=== PATIENT | female | born 1955 | race Caucasian/White ===

== ENCOUNTER → 2017-03-14 | Outpatient (CLI) | payer BC ==
--- NOTE | 2017-03-15 07:25 | MAMMOGRAPHY REPORT ---
BILATERAL DIGITAL SCREENING MAMMOGRAM TOMOSYNTHESIS WITH CAD: 03/14/2017 CLINICAL HISTORY: Routine screening. Patient has no complaints. TECHNIQUE: Breast tomosynthesis in addition to standard 2D mammography was performed. Current study was also evaluated with a Computer Aided Detection (CAD) system. COMPARISON: Comparison is made to exams dated: 03/10/2016 mammogram, 01/31/2015 mammogram, 01/23/2014 mammogram, 08/08/2013 mammogram, 02/02/2013 ultrasound, and 01/17/2013 mammogram - [facility]. BREAST COMPOSITION: There are scattered areas of fibroglandular density in both breasts. FINDINGS: There are benign rodlike calcifications in both breasts. No suspicious mass, architectura l distortion or cluster of microcalcifications is seen. IMPRESSION: ACR BI-RADS CATEGORY 2: BENIGN There is no mammographic evidence of malignancy. A 1 year screening mammogram is recommended. The pa tient will receive written notification of the results. Approximately 10% of breast cancers are not detected with mammography. A negative mammographic report should not delay biopsy if a clinically suggestive mass is present. Apolonia Garcia M.D. ay/:03/14/2017 16:15:03 [employer] Lead: Daily MURILLO(Katiy)(Grabiel), [facility] letter sent: Normal 1/2 BI-RADS Code: ACR BI-RADS Category 2: Benign
== END | disposition home or self-care (01) ==
LOC: C.MAMM 14:47
PROVIDERS: ATTEND Obstetrics & Gynecology
DX: Z12.31 Encounter for screening mammogram for malignant neoplasm of breast (principal)

== ENCOUNTER 2019-01-05 07:50 | Inpatient (IN) ==
--- NOTE | 2018-12-06 08:31 | PAT Medication Instructions ---
Medication Instructions Date of Service December 06, 2018 Home Medications [employer]™ 1 cap PO DAILY allopurinol 300 mg PO QAM ezetimibe [Zetia] 10 mg PO QPM [Glucosamine Chondroitin] 1 cap PO BID insulin glargine [Lantus Solostar U-100 Insulin] 50 unit SUBCUT BID lisinopril-hydrochlorothiazide 1 tab PO QAM metformin 1,000 mg PO BID multivitamin 1 cap PO DAILY [Fish Oil] 1 cap PO BID STOP taking 2 weeks before surgery [Glucosamine Chondroitin] 1 cap PO BID [Fish Oil] 1 cap PO BID DO NOT take the morning of surgery [employer]™ 1 cap PO DAILY lisinopril-hydrochlorothiazide 1 tab PO QAM metformin 1,000 mg PO BID multivitamin 1 cap PO DAILY Take morning of surgery With a small sip of water, OTHERWISE NOTHING TO EAT OR DRINK AFTER MIDNIGHT: allopurinol 300 mg PO QAM Take evening before surgery ezetimibe [Zetia] 10 mg PO QPM insulin glargine [Lantus Solostar U-100 Insulin] 50 unit SUBCUT BID metformin 1,000 mg PO BID Insulin Dependent Diabetic Patients * Test your blood sugar the morning of surgery * If Blood Sugar is GREATER THAN 150, take HALF of your regular dose of: insulin glargine [Lantus Solostar U-100 Insulin] -- TAKE 25 UNITS * If Blood Sugar is LESS THAN 150, DO NOT TAKE ANY: insulin glargine [Lantus Solostar U-100 Insulin] Other Notes If you have any questions please call us at [phone] or [phone] or [phone] or [phone]
--- NOTE | 2018-12-06 11:10 | Anesthesiology Consultation ---
Date of Service December 06, 2018 Assessment & Plan (1) Encounter for pre-operative examination: *PATIENT GOES BY "BRYN" Pt has a schwannoma at L3-L4. Pt previously followed with neurology [facility] P philip. Most recent MRI 2007 (in chart). No intervention done or planned. SAB and GA discussed with patient at [facility]. Chart Review Chart Review: Acceptable Risk for Surgery and Patient seen in Pre Admission Testing Teaching & Discussion Instructed NPO after midnight before surgery, except medications with 15 cc of water. Medication instructions provided according to the [facility] guidelines. History Surgery Operation Date: 01/05/19 13:05 Proposed Procedures p Right Total Knee Arthroplasty - Michael Wynn, Height/Weight Height: 5 ft 1 in Weight: 94.4 kg Allergies Allergy/AdvReac Type Severity Reaction Status Date / Time lactose Allergy Unknown LACTOSE Verified 11/28/18 11:28 INTOLERANT No Known Drug Allergies Allergy Unknown NKDA Verified 11/28/18 11:28 Medications Home Medications Medication Instructions Recorded Confirmed Last Taken DadShed 1 cap PO DAILY 11/28/18 11/28/18 Unknown allopurinol 300 mg PO QAM 11/28/18 11/28/18 11/28/18 ezetimibe [Zetia] 10 mg PO QPM 11/28/18 11/28/18 11/27/[address] 6CMh-muw-ysyhl-C-Mn 1 cap PO BID 11/28/18 11/28/18 Unknown [Glucosamine Chondroitin] insulin glargine [Lantus Solostar 50 unit SUBCUT BID 11/28/18 11/28/18 11/28/18 U-100 Insulin] lisinopril-hydrochlorothiazide 1 tab PO QAM 11/28/18 11/28/18 11/28/18 metformin 1,000 mg PO BID 11/28/18 11/28/18 11/28/18 multivitamin 1 cap PO DAILY 11/28/18 11/28/18 Unknown omega 2-gyx-ucr-fish oil [Fish Oil] 1 cap PO BID 11/28/18 11/28/18 Unknown Past Medical History Medical History Diabetes IDDM Gout History of diverticulitis TX WITH ABX History of kidney stones Hyperlipidemia Hypertension Obesity Osteoarthritis Schwannoma of spinal cord L3-L4. Pt previously followed with neurology [facility]. No intervention done or planned. Exercise / Class Metabolic Activity II 4-5 Yardwork/Stairs/Walk up hill (recently limited by knee pain but denies CP or SOB, has been swimming lately) Past Surgical History Surgical History History of biopsy BACK (TUMOR BIOPSY) History of colonoscopy History of dental surgery some teeth removed History of dilation and curettage History of tubal ligation Past Anesthesia History No Hx of Anesthesia Complications and No Family Hx of Anesthesia Complications History of PONV No Hx of PONV and Hx of Motion Sickness Social History Smoking Status: Never smoker Do You Dip or Chew Tobacco: No Hx Alcohol Use: No Hx Substance Use: No substance use type: does not use Review of Systems Pt denies any recent chest pain, shortness of breath, palpitations, cough, fever or URI. Physical Exam Vital Signs BP: 119/79 P: 88bpm SPO2: 95% RA T: 98.5 F R: 16 Constitutional + obese ENMT Mouth: + dental restorations (one crown); no chipped teeth and no loose teeth Thyromental Distance: > or= 3.5 Finger Breadths (4) Mallampati Class: III several missing teeth Neck + short neck and + thick neck; neck extension not limited Respiratory normal respiratory effort Auscultation: lungs clear to auscultation bilaterally Cardiovascular Rate/Rhythm: regular rate and regular rhythm Heart Sounds: no murmur Vessels: no carotid bruit Extremities: no edema Testing Laboratory Results 12/06/18 11:21 12/06/18 11:21 PT 10.6 Seconds (9.0-12.0) 12/06/18 11:21 INR 1.0 (0.9-1.1) 12/06/18 11:21 APTT 26.5 Seconds (21.0-31.0) 12/06/18 11:21 Hemoglobin A1c 7.1 % (4.5-5.6) H 12/06/18 11:21 Urine Color Yellow 12/06/18 11:21 Urine Appearance Clear (Clear) 12/06/18 11:21 Urine pH 5.0 (4.5-7.5) 12/06/18 11:21 Ur Specific [place] 1.017 (1.000-1.030) 12/06/18 11:21 Urine Protein Negative (Negative) 12/06/18 11:21 Urine Glucose (UA) Negative (Negative) 12/06/18 11:21 Urine Ketones Negative (Negative) 12/06/18 11:21 Urine Nitrite Negative (Negative) 12/06/18 11:21 Ur Leukocyte Esterase Negative (Negative) 12/06/18 11:21 Blood Type A Positive 12/06/18 11:21 Antibody Screen NEGATIVE 12/06/18 11:21 Electrocardiogram Date: 12/06/18 Findings: + NSR @ (91) Inferior infarct, age undetermined. Poor R wave progression, consider anterior VA vs lead placement vs LVH. Chest X-Ray Date: 12/06/18 Findings: + NAD Echocardiogram Date: 12/29/18 EF: 60% Normal ejection fraction. Grade 1 diastolic dysfunction. Normal RV size and function. Normal atria. No significant valvular disease. Normal PA pressure. Normal aorta. Other Testing MRI of Lumbar Spine - 06/12/07 L2-L3 diffuse bulging of disc, facet hypertrophy without significant central canal compromise, only mild foraminal encroachment noted. Heterogeneous enhancing focus at the right at L3-L4 is again identified. This extends into the paraspinal musculature and appears to widen the neural foramina at the right. This may be characteristic for a schwannoma with intense enhancement of this focus present. The size and appearance are unchanged [compared to 11/03/06 imaging].
--- NOTE | 2018-12-06 11:51 | XRay Report ---
TWO VIEW CHEST CLINICAL HISTORY: Preoperative examination. FINDINGS: PA and lateral chest radiographs are obtained. No prior studies are available for compariso n at the time of dictation. The cardiomediastinal silhouette is unremarkable noting mild atheroscle rotic calcification of the thoracic aorta. The lungs and pleural spaces are clear. There is no pneum othorax. The skeletal structures are osteopenic. The bony thorax appears intact. Degenerative change is seen in the thoracic spine. IMPRESSION: No active disease in the chest. Electronically signed by: Blayne Hemphill M.D. 12/06/2018 11:49 AM
[2018-12-06 13:02] LABS: Basophils # (auto) 0.03 K/uL (0-0.2); Basophils % (auto) 0.3 %; Eosinophils % (auto) 4.9 %; Hematocrit (blood only) 43.3 % (37-47); Hemoglobin 14.5 g/dL (12.0-16.0); Immature Granulocytes # (auto) 0.02 K/uL (0.00-0.02); Immature Granulocytes % (auto) 0.2 %; Lymphocytes # (auto) 2.48 K/uL (1.2-3.4); Lymphocytes % (auto) 24.2 %; Mean Corpuscular Hemoglobin 30.5 pg (25-34); Mean Corpuscular Hgb Conc 33.5 g/dL (32-36); Mean Platelet Volume 10.2 fL (7.4-10.4); Monocytes # (auto) 0.52 K/uL (0.11-0.59); Monocytes % (auto) 5.1 %; Neutrophils % (auto) 65.3 %; Platelet Count 268 K/uL (130-400); RDW Coefficient of Variation 14.5 % (11.5-14.5); RDW Standard Deviation 48.2 fL (36.4-46.3); Red Blood Count 4.76 M/uL (4.2-5.4); White Blood Count 10.25 K/uL (4.8-10.8)
[2018-12-06 13:19] LABS: Partial Thromboplastin Time 26.5 Seconds (21.0-31.0); Prothrombin Time 10.6 Seconds (9.0-12.0)
[2018-12-06 13:25] LABS: Estimated Average Glucose 157 mg/dl; Hemoglobin A1C 7.1 % (4.5-5.6)
[2018-12-06 13:30] LABS: BUN Creatinine Ratio 26.3 (10-20); Calcium 10.1 mg/dl (8.5-10.1); Creatinine Clr Calc Pharmacy 58.2 ml/min; Est GFR (African American) 67.7; Est GFR (Non-African American) 58.4; Potassium 4.4 mmol/L (3.5-5.1)
[2018-12-06 13:42] LABS: Appearance Urine Clear (Clear); Bilirubin Urine Negative (Negative); Blood Urine Negative (Negative); Color Urine Yellow; Glucose Urine UA Negative (Negative); Ketones Urine Negative (Negative); Leukocyte Esterase Urine Negative (Negative); Nitrite Urine Negative (Negative); Protein Urine Negative (Negative); Specific Gravity Urine 1.017 (1.000-1.030); Urobilinogen Urine Negative (Negative)
--- NOTE | 2019-01-04 14:21 | History & Physical Report ---
Date of Service January 04, 2019 Assessment & Plan (1) Osteoarthritis of right knee: We will proceed with a right total knee arthroplasty. Postoperatively she will be placed on aspirin for DVT prophylaxis. She will be kept in the hospital overnight for postoperative medical management. She plans to use [employer] upon discharge. Present on Admission?: Yes History of Present Illness Chief Complaint: Primary osteoarthritis of the right knee Primary Care Provider: Arias Scott is a pleasant 63-year-old female who is recently retired. She is been having chronic right knee pain. X-rays and clinical examination have been diagnostic for primary osteoarthritis of the right knee. After failing conservative treatment, she has elected to proceed with a right total knee arthroplasty. Allergies Allergy/AdvReac Type Severity Reaction Status Date / Time lactose Allergy Unknown LACTOSE Verified 11/28/18 11:28 INTOLERANT No Known Drug Allergies Allergy Unknown NKDA Verified 11/28/18 11:28 Home Medications Home Medications Medication Instructions Recorded Confirmed Type Sensory Medical 1 cap PO DAILY 11/28/18 11/28/18 History allopurinol 300 mg PO QAM 11/28/18 11/28/18 History ezetimibe [Zetia] 10 mg PO QPM 11/28/18 11/28/18 History glucos sul 1GAo-icq-ffbud-C-Mn 1 cap PO BID 11/28/18 11/28/18 History [Glucosamine Chondroitin] insulin glargine [Lantus Solostar 50 unit SUBCUT BID 11/28/18 11/28/18 History U-100 Insulin] lisinopril-hydrochlorothiazide 1 tab PO QAM 11/28/18 11/28/18 History metformin 1,000 mg PO BID 11/28/18 11/28/18 History multivitamin 1 cap PO DAILY 11/28/18 11/28/18 History omega 7-lhd-gjd-fish oil [Fish Oil] 1 cap PO BID 11/28/18 11/28/18 History Past Med/Surg History Medical History Diabetes IDDM Gout History of diverticulitis TX WITH ABX History of kidney stones Hyperlipidemia Hypertension Obesity Osteoarthritis Schwannoma of spinal cord L3-L4. Pt previously followed with neurology [facility]. No intervention done or planned. Surgical History History of biopsy BACK (TUMOR BIOPSY) History of colonoscopy History of dental surgery some teeth removed History of dilation and curettage History of tubal ligation Social History Preferred Language: Moldovan Communication Ability: Effective Intelligence Officer Basic Required: No Beliefs That Will Affect Care: None Current Living Situation: Spouse Other Information That Helps Us Care for You: Yes ([place]IVES [place], LIMITED HELP AROUND IF NEEDED) Feels Safe at Home: Yes Smoking Status: Never smoker Do You Dip or Chew Tobacco: No ; Hx Alcohol Use: No Hx Substance Use: No Review of Systems All systems reviewed & are unremarkable except as noted in HPI & below Physical Exam Constitutional: WD/WN, vitals as above Eyes: PERRL, conjunctivae normal, anicteric sclerae ENMT: external ear and nose normal, oropharynx normal Neck: trachea midline, no thyromegaly Respiratory: normal respiratory effort Cardiovascular: RRR, no murmur, no edema Gastrointestinal (Abdomen): normal bowel sounds, soft, nontender, no hepatosplenomegaly Musculoskeletal: On physical examination of the right knee there is a trace effusion. There is near full range of motion and no evidence of instability. There is significant tenderness palpation along the medial and lateral joint lines and over the distal femoral condyles. Psychiatric: A+Ox3, euthymic affect Results & Data Diagnostic Findings Radiographs of the right knee demonstrate advanced osteoarthritis with joint space narrowing osteophyte formation and ykvy-av-aqau articulation.
[~2019-01-05 07:50] MED LIST: ACETAMINOPHEN 500 MG TAB PO SCH; BUPIVACAINE 0.5 % 5 MG/1 ML PF 10ML VIAL ONE; CEFAZOLIN 2000MG 2,000 MG/15 ML SYR IV SCH; FAMOTIDINE 20 MG TAB PO SCH; GABAPENTIN 900 MG DOSE PO SCH; LR 500ML BOLUS, THEN 15ML/HR IV SCH; LR 60ML/HR IV SCH; ROPIVACAINE 0.5% 5 MG/ML 30 ML VIAL ONE; ROPIVACAINE 0.5% HCL/PF 150 MG, BUPIVACAINE 0.5% MPF 30 ML, EPINEPHrine 30MG/30ML (OR U... INSTIL SCH; TRANEXAMIC ACID 1,000 MG **IV Intra-op IV SCH; TRANEXAMIC ACID 1,000 MG **IV Pre-op IV SCH
[2019-01-05] MEDS ORDERED: fentaNYL citrate 100 MCG/2 ML VIAL ONE (08:01)
[2019-01-05] MEDS ORDERED: PROPOFOL IV EMULSION 10 MG/ML 20 ML VIAL IV ONE (08:01)
[2019-01-05] MEDS ORDERED: MIDAZOLAM HCL 1 MG/ML 2ML VIAL ONE (08:01)
[2019-01-05] MEDS ORDERED: LIDOCAINE HCL 2% 2 ML VIAL/AMP(20MG/ML) INFIL ONE (08:01)
[2019-01-05] MEDS ORDERED: fentaNYL citrate 100 MCG/2 ML VIAL IV PRN (08:27)
[2019-01-05] MEDS ORDERED: ONDANSETRON INJ 2 MG/ML 2 ML VIAL IV PRN ×2 (08:27→13:00)
[2019-01-05] MEDS ORDERED: ATROPINE SULFATE 0.1 MG/ML 10ML SYR IV PRN (08:27)
[2019-01-05] MEDS ORDERED: ePHEDrine sulfate 50 MG/ML AMP IV PRN (08:27)
--- NOTE | 2019-01-05 08:40 | History & Physical Bridge Note ---
Date of Service January 05, 2019 History & Physical Bridge Note I have examined the patient, reviewed the History & Physical and in the interval since the performance of the History & Physical I have noted the following changes of clinical significance: no changes noted
[2019-01-05] MEDS ORDERED: ONDANSETRON INJ 2 MG/ML 2 ML VIAL ONE (09:27)
[2019-01-05] MEDS ORDERED: ORTHO JOINT ANESTHETIC ONE (09:47)
--- NOTE | 2019-01-05 11:43 | Operative Report ---
Post Operative Report Pre & Post Diagnosis Operation Date: 01/05/19 10:10 Pre-Op Diagnosis: Right Knee Primary Osteoarthritis Post-Op Diagnosis: Right Knee Primary Osteoarthritis Procedure Operation Date: 01/05/19 10:10 Actual Procedures p Right Total Knee Arthroplasty(Right) - Michael Wynn DO Surgeon Michael Wynn DO Society Reporter Michael Medrano PAC Estimated Blood Loss 20 Findings Consistent with Post-Op Diagnosis Specimens Right femoral and tibial bone Complications none Disposition Disposition: Recovery Room Indications Sonia levine a pleasant 63-year-old female presented my office with chronic increasing right knee pain. X-rays and clinical examination are diagnostic for primary osteoarthritis of the right knee. After failing conservative treatment, she elected to proceed with a right total knee arthroplasty. Description of Procedure Implants used: I used a Biomet Vanguard total knee arthroplasty system with a size 57.5 femur, 63 tibia, 28 patella, and a size 14 PS plus polyethylene bearing. All com ponents were cemented in place with Palacos G cement. The patient arrived [facility] for the above procedure. There were seen in the preoperative holding area and the operative extremity was identified and signed. There were given a preoperative antibiotic, a spinal anesthetic and an adductor nerve block. There were taken back to the operating room and laid on the table in supine position. There were given basic sedation. The operative knee was then prepped and draped in sterile fashion. A timeout was done, and the patient and the operative extremity was properly identified. A midline incision was made directly over the patella. Dissection was taken down to the extensor mechanism. A subvastus arthrotomy was used. The medial retinaculum was released and the fat pad was mostly left intact. The knee was flexed and the ACL, PCL, and meniscus were removed. A drill was sent down the center of the femoral canal followed by an intramedullary augustin. Off that augustin a distal femoral cutting block was placed. 9 mm was resected off the distal femur at 5 of valgus. A posterior referencing AP sizing guide was then placed on the distal femur. The femur measured to be a size 57.5. 2 drill holes were placed in 3 of external rotation. A 4-in-1 cutting block was then impacted into place. Anterior posterior and chamfer cuts were then made. The posterior stabilizing box guide was then impacted into place and the box was resected for the posterior stabilizing component. The proximal tibia was then exposed. A drill was sent down the center of the tibial canal followed by an intramedullary augustin. Off that augustin a proximal tibial resection guide was placed. The proximal tibia was then resected. The tibia measured to be a size 63. The tibial plate was then placed in the appropriate rotation and the tibia was punched. The posterior aspect of the knee was then opened up and any additional meniscus fragments and osteophytes were removed. Trial components were then placed. I used a size 14 PS plus polyethylene insert. The knee was brought through a full range of motion and felt to be stable. The patella was then everted and 8 mm was resected off the posterior aspect of the patella. The patella measured to be a size 28. 3 peg holes were then drilled. A trial patella was placed. The knee was once again brought through a full range of motion and felt to be stable. Trial components were then removed. The surrounding soft tissues were injected with 100 cc of an orthopedic pain control cocktail. All components were then cemented into place with Palacos G cement. The final polyethylene insert was then snapped into place and the anterior bar was locked. Once cement was dry the tourniquet was deflated. Hemostasis was obtained. A dilute betadyne lavage was then done for 3 minutes. The joint was then irrigated with normal saline solution. The subvastus arthrotomy was then closed with #1 Vicryl suture. The skin was closed with 2-0 Vicryl, 3-0V lock suture, and lore. A soft compressive dressing was placed. The patient was then transferred to a hospital bed and taken to the postanesthesia care unit in stable condition. Th ey tolerated the procedure well. I attest to the content of the Intraoperative Record and any orders documented therein. Any exceptions are noted below.
--- NOTE | 2019-01-05 12:27 | XRay Report ---
RIGHT KNEE 2 VIEWS History: Right total knee arthroplasty. Degenerative arthritis. Postop. FINDINGS: The patient is status post a right total knee arthroplasty. The hardware is intact. No frac ture or dislocation. Skin lore are in place. IMPRESSION: Right total knee arthroplasty. No evidence for hardware complication. Electronically signed by: Wali Matias M.D. 01/05/2019 12:26 PM
[2019-01-05] MEDS ORDERED: MAGNESIUM HYDROXIDE SUSP 30 ML UDC PO PRN (13:00)
[2019-01-05] MEDS ORDERED: NALOXONE HCL 0.4 MG/1 ML VIAL/CARP IV PRN (13:00)
[2019-01-05] MEDS ORDERED: SODIUM CHLORIDE 0.9% 1000ML 1,000 ML IV SCH (13:00)
[2019-01-05] MEDS ORDERED: HYDROmorphone INJ 0.5 MG/0.5 ML SYR IV PRN (13:00)
[2019-01-05] MEDS ORDERED: OXYCODONE HCL IR 5 MG TAB (IMMEDIATE RELEASE) PO PRN (13:00)
[2019-01-05] MEDS ORDERED: BISACODYL 10 MG SUPP PR PRN (13:00)
[2019-01-05] MEDS ORDERED: METOCLOPRAMIDE HCL INJ 5 MG/ML 2 ML VIAL IV PRN (13:00)
[2019-01-05] MEDS ORDERED: PHARMACY GLYCEMIC MGMT CONSULT PRN (13:47)
[2019-01-05] MEDS: KETOROLAC 30 MG/ML VIAL IV SCH ×2 (14:12→20:44)
[2019-01-05] MEDS ORDERED: INSULIN GLARGINE SOLOSTAR 100 UNITS/ML 3 ML PEN SC ONE (14:15)
--- NOTE | 2019-01-05 14:18 | Anesthesiology Progress Note ---
Date of Service January 05, 2019 Anesthesia Post Procedure Vital Signs Vital Signs: Temp Pulse Pulse Resp BP BP Pulse Ox 01/05/19 13:50 80 16 111/75 93 01/05/19 13:20 71 16 120/83 93 01/05/19 12:50 36.6 C 81 16 143/80 H 94 01/05/19 12:40 36.4 C L 82 14 116/63 96 01/05/19 12:30 81 13 117/64 98 01/05/19 12:20 86 15 118/67 98 01/05/19 12:10 84 18 127/76 98 01/05/19 12:03 36.9 C 83 18 136/73 97 01/05/19 08:22 37.1 C 84 18 153/98 H 94 Pain Intensity Right Knee: Pain Intensity: 3 Transfer of Care Handoff Completed per policy Notes Mental Status: alert / awake / arousable and participated in evaluation Patient Amnestic to Procedure: Yes Nausea / Vomiting: adequately controlled Pain: adequately controlled Airway Patency, RR, SpO2: stable & adequate BP & HR: stable & adequate Hydration State: stable & adequate Anesthetic Complications: no major complications apparent and Pt Satisfied with anesthetic care
[2019-01-05] MEDS ORDERED: CARBOHYDRATES FOR HYPOGLYCEMIA PO PRN (14:30)
[2019-01-05] MEDS ORDERED: GLUCOSE 10 TABS/TUBE PO PRN (14:30)
[2019-01-05] MEDS ORDERED: DEXTROSE 50% 50 ML SYRINGE IV PRN (14:30)
[2019-01-05] MEDS ORDERED: GLUCOSE 40% GEL 15 GM TUBE PO PRN (14:30)
[2019-01-05] MEDS ORDERED: GLUCAGON FOR INJ 1 MG VIAL IM PRN (14:30)
--- NOTE | 2019-01-05 16:35 | Pharmacy Report ---
Pharmacy Glycemic Short Note 2 - Date of Service January 05, 2019 - Glycemic Short BSG Results (Last 24 hours): 01/05/19 01/05/19 01/05/19 08:23 12:05 13:04 POC Glucose 136 H 129 H 144 H OUTPATIENT ANTIDIABETIC REGIMEN: * Lantus 50 units BID * Metformin 1000mg BID ASSESSMENT: * 63 y/o F admitted s/p R TKA. No steroids given intra/pre-op noted. * Met with patient at bedside - she seems to be adherent and knowledgeable about diabetes. Last Lantus dose of 50 units was given last evening. Reports good adherence with medications. * She already ate lunch by the time glycemic consult was received, therefore was unable to cover carbs for lunch. Partial dose of Lantus given instead. Set scale for Lantus for now to be conservative with glycemic management while hospitalized. PLAN FOR INPATIENT GLYCEMIC CONTROL: * Hold outpatient oral diabetes medications - consider restarting metformin 48 hours after surgery * Basal insulin - gave Lantus 25 units x 1 at ~1400 due to patient not receiving Lantus this AM and eating lunch (carbs not covered) * Lantus per scale SQ BID * 25 units if BSG 120 mg/dL or lower * 38 units if BSG 121-179 mg/dL * 50 units if BSG 180 mg/dL or higher * Bolus insulin * NovoLog per scale ACHS or Q6hrs while NPO * Goal Range: Low 110 mg/dL - High 140 mg/dL * Correction Factor: 18 mg/dL/unit * Nutritional / Prandial insulin per carb ratio of 1 unit per 7 grams CHO consumed PLAN FOR DISCHARGE: * Recommend to resume outpatient regimen of Lantus and metformin as patient is not having any hypoglycemia and overall diabetes seems well controlled.
[2019-01-05] MEDS ORDERED: METFORMIN HCL 500 MG TAB PO SCH (17:00)
[2019-01-05] MEDS: INSULIN ASPART 100 UNITS/ML 3 ML PEN SC SCH ×2 (18:12→21:20)
[2019-01-05] MEDS: CEFAZOLIN 2000MG 2,000 MG/15 ML SYR IV SCH (18:13)
[2019-01-05] MEDS: ACETAMINOPHEN 500 MG TAB PO SCH (18:13)
[2019-01-05] MEDS: ASPIRIN 81 MG ECTAB PO SCH (20:43)
[2019-01-05] MEDS: DOCUSATE SODIUM 100 MG CAP PO SCH (20:43)
[2019-01-05] MEDS ORDERED: SENNA 8.6 MG TAB PO SCH (21:00)
[2019-01-05] MEDS ORDERED: NON-FORMULARY MEDICATION (Glucos Sul 2kcl-Msm-Chond-C-Mn [Glucosamine Chondroitin] 1 CAP) PO SCH (21:00)
[2019-01-05] MEDS ORDERED: EZETIMIBE 10 MG TABLET PO SCH (21:00)
[2019-01-05] MEDS: INSULIN GLARGINE SOLOSTAR 100 UNITS/ML 3 ML PEN SC SCH (21:20)
[2019-01-06] MEDS: CEFAZOLIN 2000MG 2,000 MG/15 ML SYR IV SCH (02:28)
[2019-01-06] MEDS: KETOROLAC 30 MG/ML VIAL IV SCH ×2 (02:28→08:44)
[2019-01-06] MEDS: ACETAMINOPHEN 500 MG TAB PO SCH (05:51)
[2019-01-06 06:21] LABS: Hematocrit (blood only) 31.6 % (37-47); Hemoglobin 10.7 g/dL (12.0-16.0); Mean Corpuscular Hemoglobin 30.7 pg (25-34); Mean Corpuscular Hgb Conc 33.9 g/dL (32-36); Mean Corpuscular Volume 90.8 fL (80-100); Mean Platelet Volume 9.4 fL (7.4-10.4); Platelet Count 207 K/uL (130-400); RDW Coefficient of Variation 14.2 % (11.5-14.5); Red Blood Count 3.48 M/uL (4.2-5.4); White Blood Count 11.57 K/uL (4.8-10.8)
[2019-01-06 07:01] LABS: BUN Creatinine Ratio 26.8 (10-20); Calcium 8.1 mg/dl (8.5-10.1); Creatinine Clr Calc Pharmacy 47.3 ml/min; Est GFR (African American) 53.3; Potassium 4.4 mmol/L (3.5-5.1)
[2019-01-06] MEDS: ASPIRIN 81 MG ECTAB PO SCH (08:43)
[2019-01-06] MEDS: DOCUSATE SODIUM 100 MG CAP PO SCH (08:44)
[2019-01-06] MEDS: INSULIN GLARGINE SOLOSTAR 100 UNITS/ML 3 ML PEN SC SCH (08:50)
[2019-01-06] MEDS: INSULIN ASPART 100 UNITS/ML 3 ML PEN SC SCH (08:51)
--- NOTE | 2019-01-06 08:55 | Orthopedic Progress Note ---
Date of Service January 06, 2019 Assessment & Plan (1) Osteoarthritis of right knee: Overall she is doing very well. She not having much pain in the right knee. She will be seen by physical therapy today for ambulation and range of motion exercises. She is on aspirin for DVT prophylaxis. She can be discharged home later today. She plans to use [employer]. She will follow-up with orthopedics in 2 weeks. Present on Admission?: Yes Subjective Sonia was seen and examined at bedside this morning. Overall she is doing very well. She is not having much pain in the right knee. She is already ambulated around the nurses station. She has no complaints. Physical Exam Musculoskeletal: On physical examination of the right knee, the dressing is clean and dry. She has active dorsiflexion and plantarflexion of the right ankle. Sensations intact throughout. Results & Data Vital Signs (Past 12 Hours) Vital Signs Temp Pulse Pulse Pulse Resp BP BP 01/06/19 08:46 85 108/71 01/06/19 07:33 36.6 C 72 16 99/63 L 01/06/19 05:54 80 125/77 01/06/19 02:45 36.7 C 81 16 166/91 H 01/06/19 00:00 36.7 C 74 16 130/78 Pulse Ox 01/06/19 08:46 01/06/19 07:33 94 01/06/19 05:54 01/06/19 02:45 92 01/06/19 00:00 95 Laboratory Results H & H 12/06/18 01/06/19 Range/Units 11:21 05:41 Hgb 14.5 10.7 L (12.0-16.0) g/dL Hct 43.3 31.6 L (37-47) % Coagulation 12/06/18 Range/Units 11:21 INR 1.0 (0.9-1.1) Diagnostic Findings Postoperative x-rays of the right knee show the prosthesis to be in anatomic alignment without any evidence of fracture, dislocation, or loosening. PG Care Time/CCT Total # of Minutes Spent Total Time Spent with Patient: Total time spent is greater than 50% in coordination of care (as documented) at patient's floor/unit and/or counseling patient:
--- NOTE | 2019-01-06 08:56 | Discharge Summary ---
Date of Service January 06, 2019 Admission HPI Per Admitting Provider Sonia is a pleasant 63-year-old female who is recently retired. She is been having chronic right knee pain. X-rays and clinical examination have been diagnostic for primary osteoarthritis of the right knee. After failing conservative treatment, she has elected to proceed with a right total knee arthroplasty. Principal Diagnosis Right total knee arthroplasty Discharge Data Allergies Allergy/AdvReac Type Severity Reaction Status Date / Time lactose Allergy Unknown LACTOSE Verified 01/05/19 08:17 INTOLERANT No Known Drug Allergies Allergy Unknown NKDA Verified 01/05/19 08:17 Consultations 01/05/19 13:00 Consult Case Management - Discharge Planning Routine Procedures Performed Operation Date: 01/05/19 10:10 Actual Procedures p Right Total Knee Arthroplasty(Right) - Michael Wynn DO Ordered Studies 01/05/19 05:00 US - OR guided needle placemen Routine Hospital Course (1) Osteoarthritis of right knee: On January 05, 2019 Sonia arrived at [facility] and underwent a right total knee arthroplasty without complication. She had a general anesthetic and a right adductor nerve block. Postoperatively she was started on aspirin for DVT prophylaxis and discharged to general orthopedic floors. Her hospital course was uneventful. On postop day #1 her H&H was stable and her pain was well controlled. She was able to ambulate well with physical therapy. She was then discharged home with [place] for pain. She will get [facility] at home. She will follow-up with orthopedics in 2 weeks. Total Time Total Time Spent Total Time Spent (In Minutes): 20 Discharge Plan Discharge Items Patient Disposition: Home - Home Health Services Reason For Visit: RIGHT KNEE DEGENERATIVE JOINT DISEASE Discharge Diagnosis: Right total knee arthroplasty Discharge Goals: Decrease discomfort and Improve function Activity: Per 'Additional Instructions' section Non-emergency contact: Surgeon Call non-emergency contact if: your wound has increased redness and your wound has increased drainage Follow-up/Referrals: Arias Pantoja [Primary Care Provider] - Diet: Carb Consistent or DM2 Addtl Provider Instructions: Activity and Therapy Recommendations: * If you are using [facility] then therapy will be provided at your home until they feel you have accomplished all of your goals. * If you are using [facility] then Physical Therapy will be provided until they feel you are ready to start Outpatient Physical Therapy. * If you are not using home therapy then Outpatient Physical Therapy should start about 3-5 days from your day of surgery. Therapy will last about 6-10 weeks * It is important not to put a pillow under your knee when you are relaxing or sleeping. It is just as important to make sure you are getting your knee perfectly straight as it is to regain your knee bend. * You were shown a series of exercises in the hospital. Do these exercises three times each day including the exercises you were shown in physical therapy. * Get up and walk several times each day. For the first four weeks, try not to stand or walk for more than one hour at a time. If you do stand or walk for more than one hour, you will not hurt anything, but your leg will likely swell. * As you feel comfortable, you may change from the walker or crutches to a cane and then to independent walking. Medications: * Narcotic You will likely be sent home from the hospital with a prescription for the narcotic pain medication that worked best throughout your stay. * Aspirin Most patients will be required to take Aspirin 81mg twice a day for 6 weeks after surgery. This is obtained tgwv-rog-gwegfxw and a prescription is not necessary. * Other medications may be prescribed for specific circumstances. If you have any questions, please call the office at . * Resume previous home medications unless otherwise instructed TEDs/Elastic Stockings: The white elastic stockings help limit swelling and prevent blood clots from forming in your legs.~ The more you wear them, the more they work. Wear them for six weeks. Dressing Care: If the incision is not draining then you may leave the lore open to air. If there is a little bit of drainage or if the lore are getting stuck on your clothing then cover the incision with a dry dressing. The lore will be removed at your 2 week follow-up appointment. Showering: You may shower 5 days from the day of surgery. Let the soapy shower water run over the lore and pat them dry. Do not scrub or soak the incision. Things To Watch For: * Drainage from the incision site that occurs more than one week after your surgery. * Increased redness at the incision site. * Fever above 102 degrees Fahrenheit. * Unusual chest pain or shortness of breath. * [facility] at with any of the above problems Follow-Up Visit: Follow-up with Dr. Wynn 2-3 weeks after your day of surgery. An appointment was probably scheduled when you signed-up for surgery in the office. If you have any questions call Office Instructions: More detailed instructions as well as Frequently Asked Questions were provided in a folder by our office when you signed-up for surgery. Please review these instructions when you get home. If you have any further questions or concerns, please feel free to call the office at [phone] Prescriptions: New aspirin [Ecotrin Low Strength] 81 mg Tablet,Delayed Release (Dr/Ec) 81 mg PO BID Qty: 84 RF: 0 hydrocodone-acetaminophen 5-325 mg tablet 1 tab PO Q6H PRN (Reason: pain) Qty: 30 RF: 0 Continued lisinopril-hydrochlorothiazide 20-12.5 mg Tablet 1 tab PO QAM RF: 0 metformin 1,000 mg Tablet 1,000 mg PO BID RF: 0 allopurinol 300 mg Tablet 300 mg PO QAM RF: 0 multivitamin Capsule 1 cap PO DAILY RF: 0 ezetimibe [Zetia] 10 mg Tablet 10 mg PO QPM RF: 0 Lantus Solostar U-100 Insulin 100 unit/mL (3 mL) Insulin Pen 50 unit SUBCUT BID RF: 0 omega 3-bve-jdm-fish oil [Fish Oil] 1,000 mg (120 mg-180 mg) Capsule 1 cap PO BID RF: 0 Glucosamine Chondroitin 550-30-1 mg Capsule 1 cap PO BID RF: 0 [facility] 1 cap PO DAILY RF: 0 Stand-Alone Forms: [facility] Discharge Orders: Discharge Order (Routine); Ordered 01/06/19 Ordered By: Michael Wynn Admission Data Admit Date/Time: 01/05/19 12:08 Attending Provider: Michael Wynn Admit Provider: Michael Wynn Primary Care Provider: Arias Pantoja Service: Surgical Services
[2019-01-06] MEDS ORDERED: MULTIVITAMIN TAB PO SCH (09:00)
[2019-01-06] MEDS ORDERED: LISINOPRIL/HCTZ 20/12.5MG 1 TAB TAB PO SCH (09:00)
[2019-01-06] MEDS ORDERED: ALLOPURINOL 300 MG TAB PO SCH (09:00)
== END 2019-01-06 12:52 | disposition home health service (06) | DRG 470 ==
LOC: ASU 07:50 → 3E 12:08

== ENCOUNTER 2021-01-23 05:05 | Observation (INO) ==
--- NOTE | 2020-12-24 16:06 | PAT Medication Instructions ---
Medication Instructions Date of Service December 24, 2020 Home Medications allopurinol 300 mg tablet 300 mg PO QAM ezetimibe 10 mg tablet (Zetia) 10 mg PO QPM glucosamine sulf dipot chlr,msm,chond 550 mg-C 30 mg-jordan 1 mg capsule (Glucosamine Chondroitin) 1 cap PO BID insulin glargine 100 unit/mL (3 mL) subcutaneous pen (Lantus Solostar U-100 Insulin) 50 unit SUBCUT BID lisinopril 20 mg-hydrochlorothiazide 12.5 mg tablet 1 tab PO QAM metformin 1,000 mg tablet 1,000 mg PO BID omega 0-uvi-ltg-fish oil 1,000 mg (120 mg-180 mg) capsule (Fish Oil) 1 cap PO BID aspirin 81 mg tablet,delayed release (Ecotrin Low Strength) 81 mg PO QPM ibuprofen 200 mg tablet (Advil) 400 mg PO DAILY PRN multivitamin 1 tab PO QAM ASK your surgeon for instructions ibuprofen 200 mg tablet (Advil) 400 mg PO DAILY PRN STOP taking 2 weeks before surgery (or as soon as possible if surgery is within 2 weeks) omega 9-che-fed-fish oil 1,000 mg (120 mg-180 mg) capsule (Fish Oil) 1 cap PO BID DO NOT take the morning of surgery lisinopril 20 mg-hydrochlorothiazide 12.5 mg tablet 1 tab PO QAM metformin 1,000 mg tablet 1,000 mg PO BID multivitamin 1 tab PO QAM Take morning of surgery With a small sip of water, OTHERWISE NOTHING TO EAT OR DRINK AFTER MIDNIGHT: allopurinol 300 mg tablet 300 mg PO QAM Take evening before surgery ezetimibe 10 mg tablet (Zetia) 10 mg PO QPM insulin glargine 100 unit/mL (3 mL) subcutaneous pen (Lantus Solostar U-100 Insulin) 50 unit SUBCUT BID metformin 1,000 mg tablet 1,000 mg PO BID aspirin 81 mg tablet,delayed release (Ecotrin Low Strength) 81 mg PO QPM (continue as normal unless told otherwise by surgeon) Insulin Dependent Diabetic Patients * Test your blood sugar the morning of surgery * If Blood Sugar is GREATER THAN 150, take HALF of your regular dose of: insulin glargine 100 unit/mL (3 mL) subcutaneous pen (Lantus Solostar U-100 Insulin) take 25 units * If Blood Sugar is LESS THAN 150, DO NOT TAKE ANY: insulin glargine 100 unit/mL (3 mL) subcutaneous pen (Lantus Solostar U-100 Insulin) Other Notes If you have any questions please call us at [phone] or [phone] or [phone] or [phone]
--- NOTE | 2020-12-29 11:29 | Anesthesiology Consultation ---
Date of Service December 29, 2020 Assessment & Plan (1) Encounter for pre-operative examination: - COVID screening: Per assessment on 12/29: Travel screen negative, no known COVID-19 positive contacts or current COVID-19 related symptoms. Patient vaccin ated. Surgeon arranging preop COVID testing. Awaiting results. - Check BSG AM DOS - S/P Right TKA (01/05/19): Plan for [place] 2/2 hx spinal tumor (Schwannoma) per anesthesia records > LMA#4 IGel + PNB at [facility] - S/P Left ESWL (12/28/19): LMA#4, [place] [facility] [place] Patient goes by "Annie" Chart Review Chart Review: Acceptable Risk for Surgery and Patient seen in Pre Admission Testing Teaching & Discussion Pre-Anesthesia Teaching/Discussion Notes: Instructed NPO after midnight before surgery,except medications with 15 cc of water. Medication instructions provided according to the PAT guidelines. History Surgery Operation Date: 01/23/21 11:45 Proposed Procedures p Left Total Knee Arthroplasty - Michael Wynn DO Height/Weight Height: 5 ft Weight: 92.3 kg Allergies Allergy/AdvReac Type Severity Reaction Status Date / Time lactose AdvReac Unknown Lactose Verified 12/29/20 11:27 intolerant Tynterq-Gxo-Lqe Reductase AdvReac Unknown Myalgia Verified 12/29/20 11:27 Inhibitor Medications Home Medications Medication Instructions Recorded Confirmed Last Taken allopurinol 300 mg tablet 300 mg PO QAM 11/28/18 12/22/20 01/02/20 05:35 ezetimibe 10 mg tablet (Zetia) 10 mg PO QPM 11/28/18 12/22/20 01/01/20 20:00 glucosamine sulf dipot 1 cap PO BID 11/28/18 12/22/20 01/01/20 20:00 chlr,msm,chond 550 mg-C 30 mg-jordan 1 mg capsule (Glucosamine Chondroitin) insulin glargine 100 unit/mL (3 50 unit SUBCUT BID 11/28/18 12/22/20 01/02/20 05:30 mL) subcutaneous pen (Lantus Solostar U-100 Insulin) lisinopril 20 1 tab PO QAM 11/28/18 12/22/20 01/01/20 08:00 mg-hydrochlorothiazide 12.5 mg tablet metformin 1,000 mg tablet 1,000 mg PO BID 11/28/18 12/22/20 12/31/19 08:00 omega 5-npq-xhz-fish oil 1,000 mg 1 cap PO BID 11/28/18 12/22/20 12/18/19 08:00 (120 mg-180 mg) capsule (Fish Oil) aspirin 81 mg tablet,delayed 81 mg PO QPM 11/12/19 12/22/20 12/30/19 20:00 release (Ecotrin Low Strength) ibuprofen 200 mg tablet (Advil) 400 mg PO DAILY PRN 11/12/19 12/22/20 11/13/19 multivitamin 1 tab PO QAM 12/22/20 12/22/20 Unknown Past Medical History Medical History Diabetes IDDM Gout History of kidney stones Hyperlipidemia Hypertension Obesity Osteoarthritis Schwannoma of spinal cord L3-L4, Pt previously had long-term surveillance and was discharged from [facility] Exercise / Class Metabolic Activity II 4-5 Yardwork/Stairs/Walk up hill (one FS (no CP, no SOB)) Past Family History Family History Aunt Colon cancer Father Diabetes Past Surgical History Surgical History History of colonoscopy 2019 History of dilation and curettage History of lithotripsy x2, Most recent= Left ESWL (12/28/19): LMA#4, [place] [facility] History of tooth extraction History of total knee replacement Right TKA (01/05/19): Plan for [place] 2/2 hx spinal tumor (Schwannoma) per anesthesia records > LMA#4 IGel + PNB at [facility] History of tubal ligation Hx of inguinal hernia repair Past Anesthesia History No Hx of Anesthesia Complications and No Family Hx of Anesthesia Complications History of PONV No Hx of PONV and Hx of Motion Sickness Social History Smoking Status: Never smoker Do You Dip or Chew Tobacco: No Hx Alcohol Use: Yes Alcohol type: beer alcohol intake frequency: holidays/special occasions only Hx Substance Use: No substance use type: does not use Review of Systems Patient denies chest pain, shortness of breath, dyspnea on exertion, fever, chills, cough, wheezing, palpitations. Physical Exam Vital Signs VITALS BP 121/75 P 95 TEMP 98.8 SP02 95%RA RESP 16 PHYSICAL Full cervical extension range of motion. Full TMJ range of motion. TMD 3.5 finger breaths Mallampati Score 3 Dentition: missing sides Lungs: clear throughout to auscultation Cardiac: regular rate and rhythm, no murmurs noted Spine: normal Carotid arteries: negative bruit Extremities: no edema Thick neck Lab Results Anesthesia Preop Results Results Anesthesia Widget: WBC 8.45 K/uL (4.8-10.8) 12/29/20 Hgb 14.0 g/dL (12.0-16.0) 12/29/20 Hct 41.2 % (37-47) 12/29/20 Plt 293 K/uL (130-400) 12/29/20 Na 134 mmol/L (136-145) L 12/29/20 K 4.4 mmol/L (3.5-5.1) 12/29/20 Cl 106 mmol/L (98-107) 12/29/20 CO2 21 mmol/L (21-32) 12/29/20 BUN 29 mg/dl (7-18) H 12/29/20 Creat 0.93 mg/dl (0.6-1.2) 12/29/20 Glucose Level 93 mg/dl (70-99) 12/29/20 PT 10.3 Seconds (9.0-12.0) 12/29/20 PTT 25.9 Seconds (21.0-31.0) 12/29/20 INR 1.0 (0.9-1.1) 12/29/20 HA1c 6.9 % (4.5-5.6) H 12/29/20 Blood Type A Positive 12/29/20 Antibody Screen NEGATIVE 12/29/20 Testing Electrocardiogram Date: 12/30/20 NSR at 94bpm. Right superior axis deviation. Low voltage QRS. PRWP, consider anterior MA vs. lead placement vs. LVH. Possible anterior/inferior infarct noted on 12/25/19 EKG with no significant change copared to 12/06/18 per robot operator review. Unremarkable ECHO done 12/26/18. Chest X-Ray Date: 12/29/20 FINDINGS: Cardiomediastinal and hilar silhouettes are within normal limits. There is no pneumothorax, pleural effusion, airspace consolidation or overt pulmonary edema. Spondylitic spurring of the spine with degenerative changes of the shoulders. Right shoulder rotator cuff calcific tendinosis. IMPRESSION: No acute process. Echocardiogram Date: 12/26/18 EF: 60% LV Function: normal Other Findings: + diastolic dysfunction (Grade 1) Trileaflet aortic valve. Trace AR. Aortic valve is thickened. Trace MR. Mitral valve is thickened.
--- NOTE | 2021-01-23 05:46 | History & Physical Report ---
Date of Service January 23, 2021 Assessment & Plan (1) Osteoarthritis of left knee: We will proceed with a left total knee arthroplasty. Postoperatively she will be started on aspirin for DVT prophylaxis and kept overnight in the hospital for postoperative medical management. She plans [facility] upon discharge. History of Present Illness Chief Complaint: Osteoarthritis of the left knee. Primary Care Provider: Arias Scott is a pleasant 65-year-old female has been doing with chronic worsening left knee pain. I did a right knee replacement on her in 2019 and she is done very well with that. Her left knee is becoming more more painful. She is failed extensive conservative treatment, she has elected to proceed with a left total knee arthroplasty.. Allergies Allergy/AdvReac Type Severity Reaction Status Date / Time lactose AdvReac Unknown Lactose Verified 01/23/21 05:35 intolerant Ebgznmv-Zxs-Ikw Reductase AdvReac Unknown Myalgia Verified 01/23/21 05:35 Inhibitor Home Medications Medication Instructions Recorded Confirmed Type allopurinol 300 mg tablet 300 mg PO QAM 11/28/18 01/23/21 History ezetimibe 10 mg tablet (Zetia) 10 mg PO QPM 11/28/18 01/23/21 History glucosamine sulf dipot 1 cap PO BID 11/28/18 01/23/21 History chlr,msm,chond 550 mg-C 30 mg-jordan 1 mg capsule (Glucosamine Chondroitin) insulin glargine 100 unit/mL (3 50 unit SUBCUT BID 11/28/18 01/23/21 History mL) subcutaneous pen (Lantus Solostar U-100 Insulin) lisinopril 20 1 tab PO QAM 11/28/18 01/23/21 History mg-hydrochlorothiazide 12.5 mg tablet metformin 1,000 mg tablet 1,000 mg PO BID 11/28/18 01/23/21 History omega 8-ygi-hqj-fish oil 1,000 mg 1 cap PO BID 11/28/18 01/23/21 History (120 mg-180 mg) capsule (Fish Oil) aspirin 81 mg tablet,delayed 81 mg PO QPM 11/12/19 01/23/21 History release (Ecotrin Low Strength) ibuprofen 200 mg tablet (Advil) 400 mg PO DAILY PRN 11/12/19 01/23/21 History multivitamin 1 tab PO QAM 12/22/20 01/23/21 History Past Med/Surg History Medical History Diabetes IDDM Gout History of kidney stones Hyperlipidemia Hypertension Obesity Osteoarthritis Schwannoma of spinal cord L3-L4, Pt previously had long-term surveillance and was discharged from neurology [facility] Surgical History History of colonoscopy 2019 History of dilation and curettage History of lithotripsy x2, Most recent= Left ESWL (12/28/19): LMA#4, atraumatic placement at [facility] History of tooth extraction History of total knee replacement Right TKA (01/05/19): Plan for [place] 2/2 hx spinal tumor (Schwannoma) per anesthesia records > LMA#4 IGel + PNB at [facility] History of tubal ligation Hx of inguinal hernia repair Family History Aunt Colon cancer Father Diabetes Social History Smoking Status: Never smoker Second Hand Exposure: No; Do You Dip or Chew Tobacco: No; Hx Alcohol Use: Yes Alcohol type: beer Hx Substance Use: No Preferred Language: Portuguese Communication Ability: Effective Tracer Powder Blender Required: No Beliefs That Will Affect Care: None marital status: Current Living Situation: Spouse current occupational status: retired Other Information That Helps Us Care for You: No Feels Safe at Home: Yes Safety Concerns: Feels Safe At This Time Assistive Devices: Cane and Glasses Review of Systems All systems reviewed & are unremarkable except as noted in HPI & below. Physical Exam On physical examination of the left knee, she has a varus deformity. She has range of motion from 0 to 120 degrees. She has no instability. She has a trace effusion.. Constitutional WD/WN, vitals as above Eyes PERRL, conjunctivae normal, anicteric sclerae ENMT external ear and nose normal, oropharynx normal Neck trachea midline, no thyromegaly Respiratory normal respiratory effort Cardiovascular RRR, no murmur, no edema Gastrointestinal (Abdomen) normal bowel sounds, soft, nontender, no hepatosplenomegaly Psychiatric A+Ox3, euthymic affect Results & Data Results & Data Laboratory Results . Diagnostic Findings X-rays of the left knee show advanced osteoarthritis with joint space narrowing, osteophyte formation, and bbqh-yd-tkbl articulation. PG Care Time/CCT Total # of Minutes Spent Total Time Spent with Patient: Total time spent is greater than 50% in coordination of care (as documented) at patient's floor/unit and/or counseling patient: Coding Level of Care Code None Diagnoses Osteoarthritis of left knee M17.12
[2021-01-23] MEDS ORDERED: FAMOTIDINE 20 MG TAB PO SCH (06:00)
[2021-01-23] MEDS ORDERED: ROPIVACAINE 0.5% HCL/PF 150 MG, BUPIVACAINE 0.75% MPF 20 ML, EPINEPHrine 30MG/30ML (OR ... INFIL SCH (06:00)
[2021-01-23] MEDS ORDERED: TRANEXAMIC ACID 1,000 MG x 1 **For Topical Use TOP SCH (06:00)
[2021-01-23] MEDS ORDERED: TRANEXAMIC ACID 1,000 MG **IV Intra-op IV SCH ×2 (06:00)
[2021-01-23] MEDS ORDERED: ceFAZolin 2000MG 2,000 MG/15 ML SYR IV SCH (06:00)
[2021-01-23] MEDS ORDERED: dexAMETHasone 4 MG TAB PO SCH (06:00)
[2021-01-23] MEDS ORDERED: ACETAMINOPHEN 500 MG TAB PO SCH (06:00)
[2021-01-23] MEDS ORDERED: LR 15ML/HR IV SCH (06:00)
[2021-01-23] MEDS ORDERED: GABAPENTIN 300 MG CAP PO SCH (06:00)
[2021-01-23] MEDS ORDERED: LR 60ML/HR IV SCH (06:00)
[2021-01-23] MEDS ORDERED: BUPIVACAINE 0.5 % 5 MG/1 ML PF 10ML VIAL ONE (06:26)
[2021-01-23] MEDS ORDERED: PROPOFOL IV EMULSION 10 MG/ML 20 ML VIAL IV ONE (06:27)
[2021-01-23] MEDS ORDERED: LIDOCAINE 2% 2 ML VIAL/AMP(20MG/ML) INFIL ONE (06:27)
[2021-01-23] MEDS ORDERED: MIDAZOLAM HCL 1 MG/ML 2ML VIAL ONE (06:27)
[2021-01-23] MEDS ORDERED: fentaNYL citrate 100 MCG/2 ML VIAL ONE ×2 (06:27→07:12)
[2021-01-23] MEDS ORDERED: ORTHO JOINT ANESTHETIC ONE (06:42)
[2021-01-23] MEDS ORDERED: HYDROmorphone INJ 2 MG/ML SYR/VIAL IV PRN (06:48)
[2021-01-23] MEDS ORDERED: ATROPINE SULFATE 0.1 MG/ML 10ML SYR IV PRN (06:48)
[2021-01-23] MEDS ORDERED: fentaNYL citrate 100 MCG/2 ML VIAL IV PRN (06:48)
[2021-01-23] MEDS ORDERED: BUPIVACAINE 0.25% 30 ML VIAL ONE (06:48)
[2021-01-23] MEDS ORDERED: ePHEDrine sulfate 50 MG/ML AMP IV PRN (06:48)
[2021-01-23] MEDS ORDERED: ONDANSETRON INJ 2 MG/ML 2 ML VIAL IV PRN ×2 (06:48→10:21)
[2021-01-23] MEDS ORDERED: EPINEPHrine INJ 1 MG/ML AMP ONE (06:48)
[2021-01-23] MEDS ORDERED: TRANEXAMIC ACID / 0.7% NACL 1,000 MG/100 ML BAG IV STA (06:52)
[2021-01-23] MEDS ORDERED: ONDANSETRON INJ 2 MG/ML 2 ML VIAL ONE (07:14)
--- NOTE | 2021-01-23 08:11 | Operative Report ---
PG Post Operative Report Pre & Post Diagnosis Operation Date: 01/23/21 07:00 Pre-Op Diagnosis: Left Knee Degenerative Joint Disease Post-Op Diagnosis: Left Knee Degenerative Joint Disease I identified the patient and participated in the time-out.: Yes Procedure Operation Date: 01/23/21 07:00 Actual Procedures p Left Total Knee Arthroplasty(Left) - Michael Wynn DO Surgeon Michael Wynn DO Contact Center Director Michael Medrano PAC Estimated Blood Loss 5 Findings Consistent with Post-Op Diagnosis Specimens Left femoral and tibial bone Complications none Disposition Disposition: Recovery Room Indications Sonia is a pleasant 65-year-old female who is been dealing with chronic worsening left knee pain. X-rays and clinical examination are diagnostic for advanced arthritis of the left knee. She underwent a right knee replacement 2018 and did very well with that. She elected proceed with a left total knee arthroplasty. Description of Procedure Implants used: I used a Konstantin Persona total knee arthroplasty system with a size 6 standard PS femur, D tibia with a 30 mm stem extension, 29 patella, and a size 14 CPS polyethylene bearing. All components were cemented in place with Biomet cement. Sonia arrived [facility] for the above procedure. She was seen in the preoperative holding area and the operative extremity was identified and signed. She was given a preoperative antibiotic, TXA, and an adductor nerve block. She was taken back to the operating room and laid on the table in supine position. She was put under general anesthesia.. The operative knee was then prepped and draped in sterile fashion. A timeout was done, and the patient and the operative extremity was properly identified. A midline incision was made directly over the patella. Dissection was taken d own to the extensor mechanism. A subvastus arthrotomy was used. The medial retinaculum was released and the fat pad was mostly excised. The knee was flexed and the ACL, PCL, and meniscus were removed. A drill was sent down the center of the femoral canal followed by an intramedullary augustin. Off that augustin a distal femoral cutting block was placed. 9 mm was resected off the distal femur at 5 of valgus. A posterior referencing AP sizing guide was then placed on the distal femur. The femur measured to be a size 6. 2 drill holes were placed in 3 of external rotation. A 4-in-1 cutting block was then impacted into place. Anterior, posterior, and chamfer cuts were then made. The proximal tibia was then exposed. An external tibial alignment guide was placed. A tibial cut guide was then anchored in place and the proximal tibia was then resected. The posterior aspect of the knee was then opened up and any additional meniscus fragments and osteophytes were removed. The tibia measured to be a size D. The tibial plate was then placed in the appropriate rotation and the tibia was drilled and punched. Trial components were then placed. I used a size 14 CPS polyethylene insert. The knee was brought through a full range of motion and felt to be stable. The peg holes for the femoral component were then drilled. The patella was then everted and 9 mm was resected off the posterior aspect of the patella. The patella measured to be a size 29. 3 peg holes were then drilled. A trial patella was placed. The knee was once again brought through a full range of motion and felt to be stable. Trial components were then removed. The surrounding soft tissues were injected with 100 cc of an orthopedic pain control cocktail. All components were then cemented into place with Biomet cement. The final polyethylene insert was then snapped into place. Once cement was dry the tourniquet was deflated. Hemostasis was obtained. A dilute betadyne lavage was then done for 3 minutes. The joint was then irrigated with normal saline solution. The subvastus arthrotomy was then closed with #1 Vicryl suture. The skin was closed with 2-0 Vicryl, 3-0V lock suture, and lore. A soft compressive dressing was placed. She was then transferred to a hospital bed and taken to the postanesthesia care unit in stable condition. She tolerated the procedure well. Michael Medrano PA-C, was present for the entire procedure. He was critical for patient positioning, prepping, draping, retraction exposure, wound closure and application of sterile dressing. I attest to the content of the Intraoperative Record and any orders documented therein. Any exceptions are noted below.
--- NOTE | 2021-01-23 09:08 | XRay Report ---
XR knee LT 1 or 2V routine INDICATION: MN ^Y ^Surgical Post Op . TECHNIQUE: 2 views of the left knee were obtained. Comparison: Comparison is made to bilateral knees 2 views 11/27/2011 FINDINGS: No joint effusion is present. Patient is status post left total arthroplasty with overlying surgical lore present. No hardware fracture or loosening is seen. The alignment is anatomic. Joint spaces a re well preserved. Subcutaneous emphysema is seen which is likely postprocedural. IMPRESSION: Status post left knee total arthroplasty with hardware in satisfactory position. ACT 112: Negative or not required by law. Electronically signed by: Benny Cuadra M.D. 01/23/2021 9:07 AM
--- NOTE | 2021-01-23 09:12 | Anesthesiology Progress Note ---
Date of Service January 23, 2021 Anesthesia Post Procedure Vital Signs Vital Signs: Temp Pulse Pulse Resp BP Pulse Ox 01/23/21 09:05 88 13 117/67 93 01/23/21 08:55 90 17 125/71 93 01/23/21 08:45 93 H 18 100/76 93 01/23/21 08:38 37.6 C H 89 16 115/64 91 01/23/21 06:10 36.8 C 85 18 149/86 H 95 01/23/21 05:42 37.0 C 93 H 18 138/89 95 Transfer of Care Handoff Completed per policy Notes Mental Status: alert / awake / arousable and participated in evaluation Patient Amnestic to Procedure: Yes Nausea / Vomiting: adequately controlled Pain: adequately controlled Airway Patency, RR, SpO2: stable & adequate BP & HR: stable & adequate Hydration State: stable & adequate Anesthetic Complications: no major complications apparent and Pt Satisfied with anesthetic care
[2021-01-23] MEDS ORDERED: METOCLOPRAMIDE HCL INJ 5 MG/ML 2 ML VIAL IV PRN (10:21)
[2021-01-23] MEDS ORDERED: oxyCODONE HCL IR 5 MG TAB (IMMEDIATE RELEASE) PO PRN (10:21)
[2021-01-23] MEDS ORDERED: MAGNESIUM HYDROXIDE SUSP 30 ML UDC PO PRN (10:21)
[2021-01-23] MEDS ORDERED: PHARMACY GLYCEMIC MGMT CONSULT PRN (10:21)
[2021-01-23] MEDS ORDERED: bisacodyL 10 MG SUPP PR PRN (10:21)
[2021-01-23] MEDS ORDERED: NALOXONE HCL 0.4 MG/1 ML VIAL/CARP IV PRN (10:21)
[2021-01-23] MEDS ORDERED: SODIUM CHLORIDE 0.9% 1000ML 1,000 ML IV SCH (10:21)
[2021-01-23] MEDS ORDERED: HYDROmorphone INJ 0.5 MG/0.5 ML SYR IV PRN (10:21)
[2021-01-23] MEDS ORDERED: GLUCOSE 40% GEL 15 GM TUBE PO PRN (10:45)
[2021-01-23] MEDS ORDERED: INSULIN GLARGINE SOLOSTAR 100 UNITS/ML 3 ML PEN SC ONE ×2 (10:45→21:00)
[2021-01-23] MEDS ORDERED: CARBOHYDRATES FOR HYPOGLYCEMIA PO PRN (10:45)
[2021-01-23] MEDS ORDERED: GLUCAGON FOR INJ 1 MG VIAL IM PRN (10:45)
[2021-01-23] MEDS ORDERED: DEXTROSE 50% 50 ML SYRINGE IV PRN (10:45)
[2021-01-23] MEDS ORDERED: GLUCOSE 10 TABS/TUBE PO PRN (10:45)
--- NOTE | 2021-01-23 10:47 | Pharmacy Report ---
Pharmacy Glycemic Short Note 2 - Date of Service January 23, 2021 - Glycemic Short BSG Results (Last 24 hours): 01/23/21 01/23/21 05:25 09:02 POC Glucose 120 H 172 H OUTPATIENT ANTIDIABETIC REGIMEN: * Lantus 50 units SQ BID * Metformin 1,000mg PO BIDM * A1c = 6.9% on 01/23/21 ASSESSMENT: * 65yo T2DM female with adequate outpatient control per recent A1c * Pt is maintained on basal insulin + metformin. It is likely that her outpatient basal insulin dosing is covering some prandial needs based on the high dose and the fact that no other prandial antidiabetic regimen is on her outpatient regimen. * Pt did receive pre-op steroids with dexamethasone 8mg PO- typically would add a dose of NPH to cover this steroid but will use outpatient Lantus dose since likely this is stressed and represents a total daily dose rather than a basal insulin dose. * Will set a scale for this evening's dose of Lantus * CF/CR based on weight since pt is naive to novolog PLAN FOR INPATIENT GLYCEMIC CONTROL: * Hold outpatient oral diabetes medications {metformin} * Basal insulin * Lantus 50 units SQ x 1 dose RONALDO/NOW then, * Lantus 30-50 units SQ BID - dose based on BSG * Bolus insulin * NovoLog per scale ACHS or Q6hrs while NPO * Goal Range: Low 110 mg/dL - High 140 mg/dL * Correction Factor: 15 mg/dL/unit * Nutritional / Prandial insulin per carb ratio of 1 unit per 5 grams CHO consumed PLAN FOR DISCHARGE: * No changes needed at DC as A1c is in goal range.
[2021-01-23] MEDS: allopurinoL 300 MG TAB PO SCH (11:07)
[2021-01-23] MEDS: KETOROLAC TROMETHAMINE 15 MG/ML VIAL IV SCH ×3 (11:09→23:37)
[2021-01-23] MEDS: LISINOPRIL/HCTZ 20/12.5MG 1 TAB TAB PO SCH (11:09)
[2021-01-23] MEDS: ASPIRIN 81 MG ECTAB PO SCH ×2 (11:09→21:05)
[2021-01-23] MEDS: MULTIVITAMIN TAB PO SCH (11:10)
[2021-01-23] MEDS: DOCUSATE SODIUM 100 MG CAP PO SCH ×2 (11:10→21:05)
[2021-01-23] MEDS: INSULIN ASPART 100 UNITS/ML 3 ML PEN SC SCH ×3 (13:38→21:04)
[2021-01-23] MEDS: ACETAMINOPHEN 500 MG TAB PO SCH ×2 (13:39→21:06)
[2021-01-23] MEDS: ceFAZolin 2000MG 2,000 MG/15 ML SYR IV SCH ×2 (15:10→23:37)
[2021-01-23] MEDS ORDERED: SENNA 8.6 MG TAB PO SCH (21:00)
[2021-01-23] MEDS ORDERED: EZETIMIBE 10 MG TABLET PO SCH (21:00)
[2021-01-24] MEDS: KETOROLAC TROMETHAMINE 15 MG/ML VIAL IV SCH (05:36)
[2021-01-24] MEDS: ACETAMINOPHEN 500 MG TAB PO SCH (05:36)
--- NOTE | 2021-01-24 07:14 | Orthopedic Progress Note ---
Date of Service January 24, 2021 Assessment & Plan (1) Status post left knee replacement: Overall she is doing very well. She not having much pain in the left knee. She will be seen by physical therapy today for ambulation and range of motion exercises. The dressing can be changed after physical therapy. She is on aspirin for DVT prophylaxis. She can be discharged home later today. She will follow-up with orthopedics in 2 weeks. Subjective Sonia was seen and examined at bedside this morning. Overall she is doing very well. She is not having much pain in the left knee. She has been up and ambulating to the bathroom. She has no complaints.. Review of Systems All systems reviewed & are unremarkable except as noted in HPI & below. Physical Exam On physical examination of the left knee, the dressing is clean and dry. She has active dorsiflexion plantarflexion of the left ankle. Sensation is intact throughout.. Results & Data Results & Data Laboratory Results . Diagnostic Findings Postoperative x-rays of the left knee show the prosthesis to be in anatomic alignment without any evidence of fracture, dislocation, or loosening. PG Care Time/CCT Total # of Minutes Spent Total Time Spent with Patient: Total time spent is greater than 50% in coordination of care (as documented) at patient's floor/unit and/or counseling patient: Coding Level of Care Code 73631 Post Operative Follow-Up Diagnoses Status post left knee replacement Z96.652
--- NOTE | 2021-01-24 07:15 | Discharge Summary ---
Date of Service January 24, 2021 Admission HPI (Per Admitting) Sonia is a pleasant 65-year-old female has been doing with chronic worsening left knee pain. I did a right knee replacement on her in 2019 and she is done very well with that. Her left knee is becoming more more painful. She is failed extensive conservative treatment, she has elected to proceed with a left total knee arthroplasty.. Admission Exam (Per Admitting) On physical examination of the left knee, she has a varus deformity. She has range of motion from 0 to 120 degrees. She has no instability. She has a trace effusion.. Principal Diagnosis Same as "Discharge Diagnosis" noted below under Discharge Instructions. Discharge Exam On physical examination of the left knee, the dressing is clean and dry. She has active dorsiflexion plantarflexion of the left ankle. Sensation is intact throughout.. Discharge Data Procedures Performed Operation Date: 01/23/21 07:00 Actual Procedures p Left Total Knee Arthroplasty(Left) - Michael Wynn DO Ordered Studies 01/23/21 05:00 US - OR guided needle placemen Routine Hospital Course (1) Status post left knee replacement: On January 23, 2021 Sonia arrived at [facility] and underwent a left knee replacement without complication. She had a general anesthetic. Postoperatively she was started on aspirin for DVT prophylaxis and transferred to the general orthopedic floors. Her hospital course was uneventful. On postop day #1 her vital signs were stable and her pain was well controlled. She was able to participate well with physical therapy doing ambulation and range of motion exercises. She was then discharged home. She will follow-up with orthopedics in 2 weeks. PG Care Time/CCT Total # of Minutes Spent Total Time Spent with Patient: Total time spent is greater than 50% in coordination of care (as documented) at patient's floor/unit and/or counseling patient: Discharge Plan Discharge Items Patient Disposition: Home - Home Health Services Reason For Visit: Left Knee Degenerative Joint Disease Discharge Diagnosis: Left knee replacement Activity: As commented below Non-emergency contact: Surgeon Call non-emergency contact if: your wound has increased redness and your wound has increased drainage Follow-up/Referrals: Arias Pantoja [Primary Care Provider] - Diet: Regular Addtl Attending Provider Instructions: Activity and Therapy Recommendations: * If you are using [facility] then therapy will be provided at your home until they feel you have accomplished all of your goals. * If you are using [facility] then Physical Therapy will be provided until they feel you are ready to start Outpatient Physical Therapy. * If you are not using home therapy then Outpatient Physical Therapy should start about 3-5 days from your day of surgery. Therapy will last about 6-10 weeks * It is important not to put a pillow under your knee when you are relaxing or sleeping. It is just as important to make sure you are getting your knee perfectly straight as it is to regain your knee bend. * You were shown a series of exercises in the hospital. Do these exercises three times each day including the exercises you were shown in physical therapy. * Get up and walk several times each day. For the first four weeks, try not to stand or walk for more than one hour at a time. If you do stand or walk for more than one hour, you will not hurt anything, but your leg will likely swell. * As you feel comfortable, you may change from the walker or crutches to a cane and then to independent walking. Medications: * Narcotic You will likely be sent home from the hospital with a prescription for the narcotic pain medication that worked best throughout your stay. * Aspirin Most patients will be required to take Aspirin 81mg twice a day for 6 weeks after surgery. This is obtained [id number] and a prescription is not necessary. * Other medications may be prescribed for specific circumstances. If you have any questions, please call the office at . * Resume previous home medications unless otherwise instructed TEDs/Elastic Stockings: The white elastic stockings help limit swelling and prevent blood clots from forming in your legs.~ The more you wear them, the more they work. Wear them for six weeks. Dressing Care: The dressing can be changed after physical therapy on postop day #1. Daily dry dressing changes for a few days, especially if the incision is still draining some. If the incision is not draining then you may leave the lore open to air. If there is a little bit of drainage or if the lore are getting stuck on your clothing then cover the incision with a dry dressing. The lore will be removed at your 2 week follow-up appointment. Showering: You may shower 5 days from the day of surgery as long as the incision is no longer draining. You may shower with the lore exposed. Let soapy water run over the lore and pat them dry. Do not scrub or soak the incision. Things To Watch For: * Drainage from the incision site that occurs more than one week after your surgery. * Increased redness at the incision site. * Fever above 102 degrees Fahrenheit. * Unusual chest pain or shortness of breath. * Call [facility] at with any of the above problems Follow-Up Visit: Follow-up with Dr. Wynn's PA (Michael Medrano) 2-3 weeks after your day of surgery. He will remove your lore and answer any questions. If you have any additional questions or concerns, Dr Wynn is usually in the office at the same time and will be available An appointment was probably scheduled when you signed-up for surgery in the office. If you have any questions call Office Instructions: More detailed instructions as well as Frequently Asked Questions were provided in a folder by our office when you signed-up for surgery. Please review these instructions when you get home. If you have any further questions or concerns, please feel free to call the office at [phone] Pending Studies at Discharge: No Stand-Alone Forms: My [facility], Smoking Cessation Medications and DC Order Prescriptions: New oxycodone 5 mg Tablet 5 mg PO Q4H PRN (Reason: pain) Qty: 30 RF: 0 Continued lisinopril-hydrochlorothiazide 20-12.5 mg Tablet 1 tab PO QAM RF: 0 metformin 1,000 mg Tablet 1,000 mg PO BID RF: 0 allopurinol 300 mg Tablet 300 mg PO QAM RF: 0 ezetimibe [Zetia] 10 mg Tablet 10 mg PO QPM RF: 0 Lantus Solostar U-100 Insulin 100 unit/mL (3 mL) Insulin Pen 50 unit SUBCUT BID RF: 0 omega 0-lcr-zeh-fish oil [Fish Oil] 1,000 mg (120 mg-180 mg) Capsule 1 cap PO BID RF: 0 Glucosamine Chondroitin 550-30-1 mg Capsule 1 cap PO BID RF: 0 ibuprofen [Advil] 200 mg Tablet 400 mg PO DAILY PRN (Reason: Pain) RF: 0 multivitamin Tablet 1 tab PO QAM RF: 0 Changed aspirin [Ecotrin Low Strength] 81 mg tablet,delayed release (DR/EC) 81 mg PO BID 42 Days Qty: 0 RF: 0 Discharge Orders: Discharge Order (Routine); Ordered 01/24/21 Ordered By: Michael Wynn Admission Data Admit Date/Time: 01/23/21 08:39 Attending Provider: Michael Wynn Admit Provider: Michael Wynn Primary Care Provider: Arias Pantoja
[2021-01-24] MEDS: ASPIRIN 81 MG ECTAB PO SCH (08:59)
[2021-01-24] MEDS: DOCUSATE SODIUM 100 MG CAP PO SCH (08:59)
[2021-01-24] MEDS: allopurinoL 300 MG TAB PO SCH (08:59)
[2021-01-24] MEDS: LISINOPRIL/HCTZ 20/12.5MG 1 TAB TAB PO SCH (09:00)
[2021-01-24] MEDS ORDERED: INSULIN GLARGINE SOLOSTAR 100 UNITS/ML 3 ML PEN SC SCH (09:00)
[2021-01-24] MEDS: MULTIVITAMIN TAB PO SCH (09:00)
[2021-01-24] MEDS: INSULIN ASPART 100 UNITS/ML 3 ML PEN SC SCH (09:03)
== END 2021-01-24 11:36 | disposition home health service (06) ==
LOC: ASU 05:05 → 3E 05:05